=== PATIENT | female | born 1985 | race Caucasian/White ===

== ENCOUNTER 2017-02-04 07:08 | Inpatient (IN) ==
[2017-02-04] MEDS ORDERED: ONDANSETRON 4 MG/2 ML VIAL IV PRN ×2 (08:30→21:18)
[2017-02-04] MEDS ORDERED: OXYTOCIN/LR 20 UNIT/1,000 ML BAG IV SCH (08:30)
--- NOTE | 2017-02-04 08:32 | Ultrasound Report ---
Exam: US OB limited Date: 02/04/2017 7:46 AM Comparison: 11/17/2016 Indication: Check SAHARA, PROM Technique:[Multiple transabdominal real-time scans were obtained of the pelvis. Color-flow scans obtained. Ultrasound images were captured and stored.] Findings: Single intrauterine fetus in the cephalic presentation with a heart rate 141 BPM. Anterior placenta with cervical length 32 mm. Maternal ovaries are identified. No detailed survey scans were obtained. No scans were obtained for dating purposes. SAHARA 17.9 mm. Impression: Single intrauterine fetus in cephalic presentation. Oligohydramnios with SAHARA 17.9 mm. PROCEDURE INTERPRETED AT [facility] DEPARTMENT OF RADIOLOGY Final Report Signed by: Dr. Glenny Rodarte
[2017-02-04] MEDS: LACTATED RINGERS 1,000 ML IV SCH ×2 (08:48→10:54)
[2017-02-04] MEDS: DOCUSATE SODIUM 100 MG CAPSULE PO SCH (08:55)
[2017-02-04 09:05] LABS: Basophils % 0.2 % (0.0-0.8); Eosinophils % 0.1 % (0.00-10.9); Hematocrit 35.2 VOL% (35.7-47.0); Hemoglobin 11.6 GM/DL (12.0-16.0); Immature Granulocytes % 0.8 %; Immature Granulocytes Absolute 0.14 #; Lymphocytes # 1.4 10*3/uL (1.4-4.0); Lymphocytes % 8.4 % (21.3-54.2); Mean Corpuscular Hemoglobin 27 PG (27-34); Mean Corpuscular Volume 82.8 FL (87-102); Mean Platelet Volume 9.5 FL (9.6-12.0); Monocytes # 0.9 10*3/uL (0.11-0.8); Monocytes % 5.1 % (1.7-12.7); Neutrophils # 14.3 10*3/uL (1.4-7.4); Neutrophils % 85.4 % (38.7-73.9); Platelet Count 248 T/CUMM (130-400); Red Blood Count 4.25 MC/CUMM (3.8-5.5); Red Cell Distribution Width 14.5 % (9.3-17.3); White Blood Count 16.8 T/CUMM (4-12)
[2017-02-04] MEDS: AMPICILLIN INJ 2,000 MG in SODIUM CHLORIDE 0.9% 100 ML IV SCH ×3 (09:07→23:16)
[2017-02-04] MEDS: BUTORPHANOL 2 MG/ML VIAL IV PRN ×2 (09:10→13:14)
[2017-02-04 09:34] LABS: Alanine Aminotransferase 17 U/L (13-56); Albumin 2.7 G/DL (3.4-5.0); Alkaline Phosphatase 107 U/L (45-117); Aspartate Amino Transferase 16 U/L (0-37); Bilirubin,Total < 0.39 MG/DL (0.2-1.0); Blood Urea Nitrogen 7 MG/DL (7-18); Calcium 8.9 MG/DL (8.5-10.1); Glucose 83 MG/DL (74-106); Osmolality,Calculated 273.5 MOS/KG (273-304); Potassium 4.6 MMOL/L (3.5-5.1); Sodium 139 MMOL/L (136-145); Total Protein 6.3 G/DL (6.4-8.3)
--- NOTE | 2017-02-04 11:04 | OB/GYN History & Physical ---
History of Present Illness Chief complaint: rupture of membranes History of present illness: Ms. Esclaante is a 31 year old female at 38+ weeks who says her water ruptured this morning at about 4:00. She started having contractions after her water ruptured. She says the fluid was clear but had some white particles to it. The patient has no other complaints. The patient is known GBS positive. She has had no other issues during her . 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 - Constitutional Vitals: Vital Signs Temp Pulse Resp BP 02/04/17 08:28 98.0 F 81 18 134/75 General appearance: normal weight, no acute distress - Antepartum / Post Antepartum Exam Cervix - Dilatation: 1 Effacement: 50 Station: -3 Rupture: SROM clear Presentation: vetex Heart Rate: cat 1 [place]: irregular contractions - Head Head exam: Present: normocephalic - Respiratory Respiratory exam: Absent: accessory muscle use - Cardiovascular Cardiovascular exam: Present: regular rate and rhythm - Extremities Exam Extremities exam: Absent: calf tenderness - Neurological Exam Neurological exam: Present: alert, oriented X3 - Psychiatric Psychiatric exam: Present: normal affect, normal mood - Skin Skin exam: Present: normal color, warm Assessment and Plan (1) PROM with onset of labor within 24 hours of rupture Status: Acute Assessment and plan: Admit and augment with Pitocin if needed. Current Visit: Yes Results - Labs CBC & BMP: 02/04/17 08:59 02/04/17 08:59 Quality Measures - VTE Contraindication to Pharmacological VTE Prophylaxis: Continuous Epidural Infusion
[2017-02-04] MEDS ORDERED: ONDANSETRON 4 MG/2 ML VIAL IV ONE (12:30)
[2017-02-04] MEDS ORDERED: FAMOTIDINE 20 MG/2 ML VIAL IV ONE (12:30)
[2017-02-04] MEDS ORDERED: ePHEDrine 50 MG/ML AMP IV PRN (12:30)
[2017-02-04] MEDS ORDERED: diphenhydrAMINE 50 MG/1 ML VIAL IV PRN ×2 (12:30)
[2017-02-04] MEDS ORDERED: CITRIC ACID/SODIUM CITRATE 30 ML UDCUP PO ONE (12:30)
[2017-02-04] MEDS ORDERED: PROMETHAZINE 25 MG/1 ML VIAL IM ONE (12:30)
[2017-02-04] MEDS ORDERED: fentaNYL 2 MCG/ROPIV 0.2% EPID 150 ML EPIDURAL SCH (12:30)
[2017-02-04] MEDS ORDERED: hydrOXYzine HCL 25 MG/1 ML VIAL IM PRN (12:30)
--- NOTE | 2017-02-04 14:29 | Event Note ---
pelvic exam /-2 IUPc inserted . Cat 1 NST
--- NOTE | 2017-02-04 18:49 | Event Note ---
The pt declines a at this time.
--- NOTE | 2017-02-04 20:43 | Operative Note ---
Date of procedure: 02/04/17 Pre-op diagnosis: IUP at 38 weeks, PROM, Failure to progress Post-op diagnosis: same Procedure: Procedure: Primary LTCS Findings: boy , apgars 9 and 9, weight 6 pounds 14 ounces, fallopian tubes atrophic, uterus and ovaries normal Procedure as follows: The patient was admitted after spontaneous rupture of membranes she was augmented all day and never progressed past 4 cm. A section was recommended and the patient finally was amenable to procedure. The patient was thus taken back to the operating room where epidural anesthesia was found be adequate the patient was prepped and draped in the usual sterile fashion. A Pfannenstiel skin incision was made with a scalpel and carried out to the underlying fascia the fascia was incised in the midline and extended laterally with Abebe scissors. The superior aspect of the fascial incision was dissected off the rectus muscle the same was done with the inferior aspect of the fascial incision. The rectus muscle was divided in the midline the peritoneum identified and entered sharply with Metzenbaum scissors extended superiorly and inferiorly with good visualization of the bladder. The bladder blade was inserted the vesicouterine peritoneum identified and entered sharply with Metzenbaum scissors extended laterally the bladder flap was then created digitally. The lower uterine segment was noted to be thin and using a scalpel was incised in the midline and extended laterally the infant's head was asynclitic in nature but easily delivered without any complications there was a loose nuchal cord 2 which was reduced at the time of delivery and the rest of the infant was then delivered atraumatically. The cord was clamped and cut and the infant was handed off to the waiting nursery team. The placenta was removed manually the uterus cleared of all clots and debris with a clean dry sponge and the uterus was then exteriorized. The lower uterine segment was repaired using 0 Vicryl in running locked fashion with a second indicating layer to check achieve excellent hemostasis. The fallopian tubes were noted to be atrophic in nature and the ovaries look normal. The uterus was then reintroduced into the abdominal cavity copious irrigation was performed and the gutters were cleared of all clots and debris. The lower uterine segment was inspected and noted to be hemostatic. Surgicel was placed over the lower uterine segment and Interceed over the anterior surface of the uterus to help prevent adhesions. The peritoneum was reapproximated using 3-0 Vicryl in a running fashion the muscle was reapproximated using 0 Vicryl in a vertical mattress interrupted fashion. The fascia was reapproximated using 0 Vicryl in a running fashion starting either angle and tying the middle and subcutaneous fat was reapproximated using 3-0 Vicryl in a running fashion and the skin was reapproximated using an sort gregory. Sponge lap management counts were correct 3. Anesthesia: epidural Surgeon / Physician: Rohini Shepherd Estimated blood loss: other (300) Specimens: none sent Condition: stable Results - Labs CBC & BMP: 02/04/17 08:59 02/04/17 08:59 Discharge Plan - Discharge Medications No Action Pnv No.95/Ferrous Fum/Folic AC [ Tablet] 1 each PO DAILY - Follow Up or Referral - Forms/Instructions
[2017-02-04] MEDS ORDERED: ROPIVACAINE 0.5% 30 ML VIAL ONE (20:58)
[2017-02-04] MEDS ORDERED: ACETAMINOPHEN 1,000 MG/100 ML VIAL IV ONE (20:59)
[2017-02-04] MEDS ORDERED: DEXAMETHASONE 10 MG/1 ML VIAL ONE (20:59)
[2017-02-04] MEDS ORDERED: KETOROLAC 30 MG/1 ML VIAL ONE (20:59)
[2017-02-04] MEDS ORDERED: MORPHINE 10 MG/10 ML VIAL ONE (20:59)
[2017-02-04] MEDS ORDERED: ONDANSETRON 4 MG/2 ML VIAL ONE (20:59)
[2017-02-04] MEDS ORDERED: HYDROmorphone 2 MG/1 ML VIAL IV PRN (21:18)
[2017-02-04] MEDS ORDERED: ACETAMINOPHEN INJ 1,000 MG in PREMIX 1 EACH IV ONE (21:22)
[2017-02-04] MEDS ORDERED: LACTATED RINGERS 1,000 ML IV SCH (21:30)
[2017-02-04] MEDS ORDERED: SODIUM CHLORIDE 0.9% 1,000 ML IV SCH (21:30)
[2017-02-04] MEDS ORDERED: OXYTOCIN/LR 20 UNIT/1,000 ML BAG IV ONE (23:27)
[2017-02-04] MEDS ORDERED: ACETAMINOPHEN 325 MG TABLET PO PRN (23:27)
[2017-02-05] MEDS ORDERED: diphenhydrAMINE 50 MG/1 ML VIAL ONE (00:44)
[2017-02-05] MEDS ORDERED: diphenhydrAMINE 50 MG/1 ML VIAL IV PRN (00:47)
[2017-02-05] MEDS ORDERED: ACETAMINOPHEN INJ 1,000 MG in PREMIX 1 EACH IV ONE (03:00)
[2017-02-05 05:04] LABS: Basophils % 0.2 % (0.0-0.8); Hematocrit 30.4 VOL% (35.7-47.0); Hemoglobin 9.9 GM/DL (12.0-16.0); Immature Granulocytes % 0.8 %; Lymphocytes # 1.2 10*3/uL (1.4-4.0); Lymphocytes % 4.6 % (21.3-54.2); Mean Corpuscular HGB Conc 32.6 GM/DL (32-36); Mean Corpuscular Hemoglobin 27 PG (27-34); Mean Corpuscular Volume 82.6 FL (87-102); Mean Platelet Volume 10.2 FL (9.6-12.0); Monocytes # 1.1 10*3/uL (0.11-0.8); Monocytes % 4.1 % (1.7-12.7); Neutrophils # 23.4 10*3/uL (1.4-7.4); Neutrophils % 90.3 % (38.7-73.9); Platelet Count 247 T/CUMM (130-400); Red Blood Count 3.68 MC/CUMM (3.8-5.5); Red Cell Distribution Width 14.4 % (9.3-17.3); White Blood Count 25.8 T/CUMM (4-12)
[2017-02-05 05:29] LABS: Band Neutrophils 5 % (0-10); Lymphocytes 6 % (20-55); Platelet Estimate Normal; Segmented Neutrophils 83 % (50-85); Total Cells Counted 100
[2017-02-05] MEDS ORDERED: RHO(D) IMMUNE GLOBULIN 300 MCG SYRINGE IM ONE (06:00)
[2017-02-05] MEDS ORDERED: LACTATED RINGERS 1,000 ML IV SCH (06:00)
[2017-02-05] MEDS: MULTIVITAMIN (PRENATAL) TABLET PO SCH (08:53)
[2017-02-05] MEDS: MAGNESIUM HYDROXIDE SUSP 30 ML UDCUP PO PRN (08:53)
[2017-02-05] MEDS: SIMETHICONE CHEW 80 MG TABLET PO PRN (08:53)
--- NOTE | 2017-02-05 09:48 | Event Note ---
There were 2 events notes that were documented on another patient. The original note was documented on J #[id number] yesterday on 02/04/2017 1 at 18:15 and 1 at 19:17. The note documented at 18:15 is as follows: Pelvic exam performed caput noted. Cervix tight 4 cm. Baby with early decelerations but looks good. An IUPC is in place and the patient has adequate contractions. I have recommended a C- section. The patient will speak with her . The note documented at 19:17 is as follows: Pelvic rechecked by RN and still 4 cm with large amount of caput. The patient now agrees for a . Risks benefits alternatives and complications were reviewed.
--- NOTE | 2017-02-05 09:49 | OB/GYN Progress Note ---
Assessment and Plan (1) PROM with onset of labor within 24 hours of rupture Status: Acute Assessment and plan: Failure to progress . The pt had a . POD#1 s/p Primary LTCS. Continue routine postop care Current Visit: Yes AZURE ARCHITECT - PN: Subj Interval history: The patient says her bleeding and her pain are under control. She is tolerating food and passing flatus. Exam AZURE ARCHITECT - Constitutional Vitals: Vital Signs Temp Pulse Resp BP Pulse Ox 02/05/17 04:00 97.4 F L 73 18 105/51 95 02/05/17 01:15 75 18 116/62 95 02/05/17 00:15 97 F L 69 18 111/51 95 02/05/17 00:00 18 02/04/17 23:42 98 F 60 18 114/49 02/04/17 23:27 62 18 110/58 02/04/17 20:00 97 F L 90 18 111/62 General appearance: normal weight, no acute distress - Respiratory Respiratory exam: Absent: accessory muscle use - Cardiovascular Cardiovascular exam: Present: regular rate and rhythm - GI/Abdominal GI/Abdominal exam: Absent: guarding, tenderness, rebound - Extremities Exam Extremities exam: Absent: calf tenderness - Neurological Exam Neurological exam: Present: alert, oriented X3 - Psychiatric Psychiatric exam: Present: normal affect, normal mood - Skin Skin exam: Present: normal color Results - Labs CBC & BMP: 02/05/17 03:55 02/04/17 08:59
[2017-02-05] MEDS: IBUPROFEN 800 MG TABLET PO PRN (14:02)
[2017-02-05] MEDS: ALUMINUM/MAGNES/SIMETH MAX STR 30 ML UDCUP PO PRN ×2 (16:53→20:51)
--- NOTE | 2017-02-05 18:39 | Anesthesia Post-Op ---
Anesthesia Post OP - Post Ansesthetic Evaluation Patient seen in post op: Yes Resp: within normal limits CV: within normal limits Mental: within normal limits Temp: within normal limits [id number]-[id number]-[id number]: within normal limits Nausea and Vomiting: within normal limits Pain: within normal limits
[2017-02-05] MEDS: DOCUSATE SODIUM 100 MG CAPSULE PO SCH (20:51)
[2017-02-06 05:20] LABS: Basophils % 0.3 % (0.0-0.8); Eosinophils # 0.1 10*3/uL (0.0-0.87); Eosinophils % 0.6 % (0.00-10.9); Hematocrit 29.4 VOL% (35.7-47.0); Hemoglobin 9.8 GM/DL (12.0-16.0); Immature Granulocytes Absolute 0.16 #; Lymphocytes # 2.6 10*3/uL (1.4-4.0); Lymphocytes % 16.2 % (21.3-54.2); Mean Corpuscular HGB Conc 33.3 GM/DL (32-36); Mean Corpuscular Hemoglobin 28 PG (27-34); Mean Corpuscular Volume 84.2 FL (87-102); Mean Platelet Volume 10.2 FL (9.6-12.0); Monocytes # 1.3 10*3/uL (0.11-0.8); Monocytes % 8.3 % (1.7-12.7); NRBC # 0.04 10*3/uL; Neutrophils # 11.6 10*3/uL (1.4-7.4); Neutrophils % 73.6 % (38.7-73.9); Platelet Count 205 T/CUMM (130-400); Red Blood Count 3.49 MC/CUMM (3.8-5.5); Red Cell Distribution Width 14.6 % (9.3-17.3); White Blood Count 15.8 T/CUMM (4-12)
[2017-02-06] MEDS ORDERED: BISACODYL 10 MG SUPP RECTAL PRN (07:58)
[2017-02-06] MEDS: DOCUSATE SODIUM 100 MG CAPSULE PO SCH (08:52)
[2017-02-06] MEDS: MAGNESIUM HYDROXIDE SUSP 30 ML UDCUP PO PRN (08:52)
[2017-02-06] MEDS: IBUPROFEN 800 MG TABLET PO PRN (08:52)
[2017-02-06] MEDS: SIMETHICONE CHEW 80 MG TABLET PO PRN (08:52)
[2017-02-06] MEDS: MULTIVITAMIN (PRENATAL) TABLET PO SCH (09:11)
--- NOTE | 2017-02-06 09:31 | Discharge Summary ---
Hospital Course - Hospital Course Hospital Course: The patient was admitted at 38+ weeks with spontaneous rupture of membrane she never progressed past 3 cm and underwent a section for failure to progress. Please review details on the op note. Postoperatively the patient did well and was ready to go home on postoperative day #2. Precautions were given. She was to follow-up with Dr. Mullen within the week. Diagnosis - Discharge Diagnosis (1) PROM with onset of labor within 24 hours of rupture Status: Acute Specialty Discharge - Follow Up or Referrals Follow up with: Linda Mullen DO [Physician] - 1 Week Discharge Plan - Discharge Data Disposition: Disch To Home/Self Care Condition at Discharge: Stable Discharge Diet: advance to your usual diet Activity: no lifting Hygiene: may shower Driving: not until seen by doctor Contact your physician if you experience:: fever over 101, Difficulty voiding, Redness or swelling, Nausea/Vomiting, Shortness of breath, Bleeding, pain uncontrolled by pain medications - Discharge Medications New oxyCODONE/ACETAMINOPHEN 5-325 [Percocet 5-325] 1 tablet PO Q6H PRN #30 tablet PRN Reason: Abdominal Pain No Action Pnv No.95/Ferrous Fum/Folic AC [ Tablet] 1 each PO DAILY - Follow Up or Referral - Forms/Instructions Instructions: Depression (GEN), Surgical Site Infections (GEN), Wound Healing and Your Diet (DC), Bleeding (DC) Exam - Constitutional Vitals: Period Temp Pulse Resp BP Sys/Brooke Pulse Ox Last 24 Hr 97.8 F-98.5 F 76-94 18-20 102-123/50-75 95-100 General appearance: normal weight, no acute distress - Respiratory Respiratory exam: Absent: accessory muscle use - GI/Abdominal GI/Abdominal exam: Present: soft. Absent: guarding, tenderness, rebound - Extremities Exam Extremities exam: Absent: calf tenderness - Neurological Exam Neurological exam: Present: alert, oriented X3 - Psychiatric Psychiatric exam: Present: normal affect Discharge Results Procedures and tests throughout hospitalization: Pending Orders 02/04/17 08:30 Urinalysis Routine Labs on day of discharge: Labs from last 24 hours 02/06/17 03:59 WBC 15.8 H D RBC 3.49 L Hgb 9.8 L Hct 29.4 L MCV 84.2 L MCH 28 MCHC 33.3 RDW 14.6 Plt Count 205 MPV 10.2 Neut % (Auto) 73.6 Lymph % (Auto) 16.2 L Casey % (Auto) 8.3 Eos % (Auto) 0.6 Baso % (Auto) 0.3 Neut # (Auto) 11.6 H Lymph # (Auto) 2.6 Casey # (Auto) 1.3 H Eos # (Auto) 0.1 Baso # (Auto) 0.0 Immature Gran % 1.0 Nucleated RBC % 0.3 Immature Gran # 0.16 Nucleated RBCs # 0.04 DS: Provider Date of admission: 02/04/17 08:30 Primary care physician: . No PCP Attending physician on admission: Rohini Torres- Consults: 02/04/17 08:30 Consult to Anesthesiology [CONS] Routine Consulting Provider: Reason for Anesthesiology: Epidural Consult Comment: Epidural for pain managment 02/04/17 23:27 Consult to Fur Buyer [CONS] Routine Consult Fur Buyer: Breast Feeding Discharging clinician: Rohini Torres- Expected date of discharge: 02/06/17
[2017-02-06 10:17] VITALS: BP 123/76
== END 2017-02-06 11:30 | disposition home or self-care (01) | DRG 766 ==
LOC: N.LDOUT 07:08 → N.LD 07:12 → N.OB 02-05 00:15
PROVIDERS: ADMIT Obstetrics & Gynecology; ATTEND Obstetrics & Gynecology
PROC: LDCSECT (ICD-10-PCS; 2017-02-04 19:30)

== ENCOUNTER 2018-09-06 14:32 | Inpatient (IN) ==
[2018-09-06] MEDS ORDERED: CITRIC ACID/SODIUM CITRATE 30 ML UDCUP PO ONE (14:44)
[2018-09-06] MEDS ORDERED: FAMOTIDINE 20 MG/2 ML VIAL IV ONE (14:44)
[2018-09-06] MEDS ORDERED: LACTATED RINGERS 1,000 ML IV ONE (14:47)
[2018-09-06] MEDS ORDERED: OXYTOCIN/LR 20 UNIT/1,000 ML BAG IV ONE ×2 (14:48→19:20)
[2018-09-06] MEDS ORDERED: LACTATED RINGERS 1,000 ML IV SCH ×2 (15:00→19:30)
[2018-09-06 15:07] LABS: Basophils % 0.2 % (0.0-0.8); Eosinophils # 0.1 10*3/uL (0.0-0.87); Eosinophils % 0.6 % (0.00-10.9); Hematocrit 37.9 VOL% (35.7-47.0); Hemoglobin 11.9 GM/DL (12.0-16.0); Immature Granulocytes % 0.6 %; Immature Granulocytes Absolute 0.07 #; Lymphocytes # 1.9 10*3/uL (1.4-4.0); Lymphocytes % 15.8 % (21.3-54.2); Mean Corpuscular HGB Conc 31.4 GM/DL (32-36); Mean Corpuscular Hemoglobin 26 PG (27-34); Mean Corpuscular Volume 83.7 FL (87-102); Mean Platelet Volume 9.7 FL (9.6-12.0); Monocytes # 0.8 10*3/uL (0.11-0.8); Monocytes % 6.5 % (1.7-12.7); Neutrophils # 9.2 10*3/uL (1.4-7.4); Neutrophils % 76.3 % (38.7-73.9); Platelet Count 270 T/CUMM (130-400); Red Blood Count 4.53 MC/CUMM (3.8-5.5)
[2018-09-06 15:20] LABS: Bilirubin,Direct 0.11 MG/DL (0.0-0.20); Uric Acid 5.2 MG/DL (2.6-6.0)
[2018-09-06 15:23] LABS: Alanine Aminotransferase 19 U/L (13-56); Albumin 3.1 G/DL (3.4-5.0); Alkaline Phosphatase 132 U/L (45-117); Aspartate Amino Transferase 17 U/L (0-37); Bilirubin,Total < 0.39 MG/DL (0.2-1.0); Blood Urea Nitrogen 10 MG/DL (7-18); Calcium 9.6 MG/DL (8.5-10.1); Glucose 73 MG/DL (74-106); Osmolality,Calculated 272.7 MOS/KG (273-304); Potassium 3.9 MMOL/L (3.5-5.1); Sodium 138 MMOL/L (136-145); Total Protein 7.5 G/DL (6.4-8.3)
[2018-09-06 15:24] LABS: INR 0.9; PT Patient Result 9.6 SECS; Partial Thromboplastin Time 27.5 SECS (0-40)
[2018-09-06] MEDS ORDERED: DEXAMETHASONE 10 MG/1 ML VIAL ONE (17:09)
[2018-09-06] MEDS ORDERED: ceFAZolin 2,000 MG in PREMIX 1 EACH IV ONE (18:30)
[2018-09-06] MEDS ORDERED: SIMETHICONE CHEW 80 MG TABLET PO PRN (19:20)
[2018-09-06] MEDS ORDERED: ONDANSETRON 4 MG/2 ML VIAL IV PRN ×2 (19:20→23:52)
[2018-09-06] MEDS ORDERED: ACETAMINOPHEN 325 MG TABLET PO PRN (19:20)
[2018-09-06] MEDS ORDERED: RHO(D) IMMUNE GLOBULIN 300 MCG SYRINGE IM ONE (19:20)
[2018-09-06] MEDS ORDERED: fentaNYL 100 MCG/2 ML VIAL ONE (19:30)
[2018-09-06] MEDS ORDERED: ePHEDrine 50 MG/ML AMP ONE (19:31)
[2018-09-06] MEDS ORDERED: MORPHINE 10 MG/10 ML VIAL ONE (19:31)
[2018-09-06] MEDS ORDERED: PHENYLEPHRINE 1 MG/10 ML SYRINGE IV ONE (19:32)
[2018-09-06] MEDS ORDERED: BUPIVACAINE SPINAL 0.75% 2 ML AMP SPINAL ONE (19:33)
[2018-09-06 19:59] LABS: Apearance,Urine CLEAR (Clear); Bilirubin,Urine Negative (Negative); Blood, Urine Negative (Negative); Glucose,Urine (UA) Negative (Negative); Ketones,Urine 80 mg/dL (Negative); Mucus,Urine Occasional /LPF (Occasional); Nitrite,Urine Negative (Negative); Protein,Urine Negative; Squamous Epithelial Cell,Urine Occasional /HPF (0-10); Urine Color Yellow (Yellow); Urine Specific Gravity 1.012 (1.001-1.035); Urine Urobilinogen < 2.0 EU/DL (0.2-1.0); WBC,Urine 1 /HPF (0-6)
[2018-09-06] MEDS ORDERED: diphenhydrAMINE 50 MG/1 ML VIAL ONE (22:08)
[2018-09-06] MEDS ORDERED: KETOROLAC 30 MG/1 ML VIAL IV PRN (22:30)
[2018-09-06] MEDS ORDERED: diphenhydrAMINE 50 MG/1 ML VIAL IV PRN (22:36)
[2018-09-06] MEDS ORDERED: HydrOXYzine PAMOATE 50 MG CAPSULE PO PRN (22:36)
[2018-09-06] MEDS: DOCUSATE SODIUM 100 MG CAPSULE PO SCH (23:06)
[2018-09-06] MEDS ORDERED: MEPERIDINE 25 MG/1 ML VIAL IV PRN (23:08)
[2018-09-06] MEDS ORDERED: PROMETHAZINE 25 MG/1 ML VIAL IM PRN (23:13)
[2018-09-07] MEDS: ceFAZolin 1,000 MG in SYRINGE 1 EACH IV SCH ×2 (01:57→10:00)
[2018-09-07] MEDS: IBUPROFEN 800 MG TABLET PO PRN ×2 (04:27→17:46)
[2018-09-07 06:52] LABS: Basophils % 0.2 % (0.0-0.8); Hematocrit 32.3 VOL% (35.7-47.0); Hemoglobin 10.2 GM/DL (12.0-16.0); Immature Granulocytes % 0.5 %; Lymphocytes # 1.2 10*3/uL (1.4-4.0); Lymphocytes % 6.4 % (21.3-54.2); Mean Corpuscular HGB Conc 31.6 GM/DL (32-36); Mean Corpuscular Hemoglobin 27 PG (27-34); Mean Platelet Volume 10.3 FL (9.6-12.0); Monocytes # 0.6 10*3/uL (0.11-0.8); Monocytes % 3.5 % (1.7-12.7); Neutrophils # 16.3 10*3/uL (1.4-7.4); Neutrophils % 89.4 % (38.7-73.9); Platelet Count 229 T/CUMM (130-400); Red Cell Distribution Width 13.9 % (9.3-17.3); White Blood Count 18.2 T/CUMM (4-12)
[2018-09-07] MEDS: MULTIVITAMIN (PRENATAL) TABLET PO SCH (08:13)
[2018-09-07] MEDS: MAGNESIUM HYDROXIDE SUSP 30 ML UDCUP PO PRN (08:14)
[2018-09-07] MEDS: DOCUSATE SODIUM 100 MG CAPSULE PO SCH ×2 (08:15→20:22)
[2018-09-07 10:34] LABS: Basophils % 0.2 % (0.0-0.8); Eosinophils % 0.1 % (0.00-10.9); Hematocrit 32.3 VOL% (35.7-47.0); Hemoglobin 10.3 GM/DL (12.0-16.0); Immature Granulocytes % 0.5 %; Lymphocytes # 2.6 10*3/uL (1.4-4.0); Lymphocytes % 13.5 % (21.3-54.2); Mean Corpuscular HGB Conc 31.9 GM/DL (32-36); Mean Corpuscular Hemoglobin 27 PG (27-34); Mean Corpuscular Volume 83.5 FL (87-102); Mean Platelet Volume 9.8 FL (9.6-12.0); Monocytes # 1.9 10*3/uL (0.11-0.8); Monocytes % 9.6 % (1.7-12.7); Neutrophils # 14.7 10*3/uL (1.4-7.4); Neutrophils % 76.1 % (38.7-73.9); Platelet Count 246 T/CUMM (130-400); Red Blood Count 3.87 MC/CUMM (3.8-5.5); Red Cell Distribution Width 13.9 % (9.3-17.3); White Blood Count 19.3 T/CUMM (4-12)
[2018-09-07] MEDS: oxyCODONE/ACETAMINOPHEN 5-325 MG TABLET PO PRN ×3 (11:13→23:51)
[2018-09-07] MEDS ORDERED: diphenhydrAMINE CAP 25 MG CAPSULE PO PRN (17:49)
[2018-09-08] MEDS: IBUPROFEN 800 MG TABLET PO PRN (03:11)
[2018-09-08 07:24] VITALS: BP 126/69
[2018-09-08] MEDS: MULTIVITAMIN (PRENATAL) TABLET PO SCH (08:33)
[2018-09-08] MEDS: DOCUSATE SODIUM 100 MG CAPSULE PO SCH (08:34)
[2018-09-08] MEDS: MAGNESIUM HYDROXIDE SUSP 30 ML UDCUP PO PRN (08:35)
== END 2018-09-08 10:40 | disposition home or self-care (01) | DRG 788 ==
LOC: N.LDOUT 14:32 → N.LD 14:33 → N.OB 22:10
PROVIDERS: ADMIT Obstetrics & Gynecology; ATTEND Obstetrics & Gynecology
PROC: LDCSECT (ICD-10-PCS; 2018-09-06 18:00)